=== PATIENT | female | born 1960 | race Caucasian/White ===

== ENCOUNTER 2022-08-03 05:37 | Day surgery (SDC) | payer MEDICAID ==
[~2022-08-03] VITALS: Ht 182.9 cm; Wt 79.4 kg
[2022-08-03] MEDS ORDERED: MEPERIDINE HCL/PF 25 MG/ML DISP.SYRIN ONE (07:45)
[2022-08-03] MEDS ORDERED: SIMETHICONE 40 MG/0.6 ML ML ONE (07:59)
[2022-08-03] MEDS: MEPERIDINE 100 MG INJ. 100 MG/ML VIAL ONE ×2 (08:41→08:52)
[2022-08-03] MEDS: MIDAZOLAM HCL 5 MG/5 ML VIAL ONE ×4 (08:41→08:52)
[2022-08-03] MEDS ORDERED: DIPHENHYDRAMINE INJ 50 MG/ML VIAL ONE (08:48)
[2022-08-03 13:40] VITALS: BP_SYST 141
== END 2022-08-03 09:58 | disposition home or self-care (01) ==
LOC: SDS 05:37 → SMU 05:38 → SDS 09:58
PROVIDERS: ATTEND Internal Medicine Gastroenterology
DX: Z12.11 Encounter for screening for malignant neoplasm of colon (principal); K64.8 Other hemorrhoids; Z87.891 Personal history of nicotine dependence; Z90.710 Acquired absence of both cervix and uterus
CPT/HCPCS: 45378; 99152; 99153; G0378; J1200; J2250; J2175